=== PATIENT | female | born 1970 | race Caucasian/White ===

== ENCOUNTER 2016-08-02 13:15 | Inpatient (IN) | payer OTHER ==
[2016-08-02] MEDS ORDERED: NITROGLYCERIN OINT 1 INCH/GM PACKET TOPICAL STA (13:59)
[2016-08-02] MEDS ORDERED: ASPIRIN 81 MG CHEW PO STA (13:59)
--- NOTE | 2016-08-02 14:02 | ED ---
General Adult HPI - General Chief complaint: Chest Pain Stated complaint: Chest Pain Time Seen by Provider: 08/02/16 13:35 Source: patient, RN notes reviewed Mode of arrival: wheelchair Limitations: no limitations - History of Present Illness Initial comments: This is a 46-year-old female who presents emergency Department complaining of chest pain since Sunday. Patient states the pain radiates to her neck or back and her left arm. Patient states when she gets the chest pain she also was nauseous. Patient states she also short of breath. Patient states Sunday night the pain lasted all night long. Patient states she did vomit times one. Patient states since Sunday it is been intermittent ever since. Patient states currently she is chest pain-free and she is not short of breath. Patient denies any recent fever chills or cough per patient denies diabetes hypertension high cholesterol. Patient states she is a smoker. Patient denies any family history. Patient denies any lightheadedness dizziness or near syncopal episode. Patient denies headache patient denies numbness weakness. Patient denies any recent injury or trauma. Patient denies any abdominal pain. Patient states he does seem to come on after she eats but she has no abdominal tenderness - Related Data Home Medications Medication Instructions Recorded Confirmed Ibuprofen [Motrin] 200 mg PO ONCE PRN 08/02/16 08/02/16 Allergies Allergy/AdvReac Type Severity Reaction Status Date / Time No Known Allergies Allergy Verified 08/02/16 13:56 Review of Systems ROS Statement: Those systems with pertinent positive or pertinent negative responses have been documented in the HPI. ROS Other: All systems not noted in ROS Statement are negative. Past Medical History Past Medical History: No Reported History History of Any Multi-Drug Resistant Organisms: None Reported Past Surgical History: Section, Orthopedic Surgery Past Psychological History: No Psychological Hx Reported Smoking Status: Current every day smoker Past Alcohol Use History: Occasional Past Drug Use History: None Reported General Exam - General Exam Comments Initial Comments: GENERAL: Patient is well-developed and well-nourished. Patient is nontoxic and well- hydrated and is in no acute distress. ENT: Neck is soft and supple. No significant lymphadenopathy is noted. Oropharynx is clear. Moist mucous membranes. Neck has full range of motion without eliciting any pain. EYES: The sclera were anicteric and conjunctiva were pink and moist. Extraocular movements were intact and pupils were equal round and reactive to light. Eyelids were unremarkable. PULMONARY: Unlabored respirations. Good breath sounds bilaterally. No audible rales rhonchi or wheezing was noted. CARDIOVASCULAR: There is a regular rate and rhythm without any murmurs gallops or rubs. ABDOMEN: Soft and nontender with normal bowel sounds. No palpable organomegaly was noted. There is no palpable pulsatile mass. SKIN: Skin is clear with no lesions or rashes and otherwise unremarkable. NEUROLOGIC: Patient is alert and oriented x3. Cranial nerves II through XII are grossly intact. Motor and sensory are also intact. Normal speech, volume and content. Symmetrical smile. MUSCULOSKELETAL: Normal extremities with adequate strength and full range of motion. No lower extremity swelling or edema. No calf tenderness. LYMPHATICS: No significant lymphadenopathy is noted PSYCHIATRIC: Normal psychiatric evaluation. Limitations: no limitations Course Vital Signs 08/02/16 08/02/16 13:17 15:11 Temperature 98.7 F Pulse Rate 110 H 84 Respiratory 18 18 Rate Blood Pressure 138/90 118/79 O2 Sat by Pulse 96 98 Oximetry Medical Decision Making - Medical Decision Making EKG shows normal sinus rhythm at 97 bpm PA interval is 206 QRS is 98 QT interval 358 QTC is 454 per patient's EKG shows no ST segment elevation or depression. No T-wave abnormalities are noted. Patient started on heparin when I found that the troponin was elevated. I Dr. Sue he was in agreement with this. Patient's sugar was elevated I started the patient on an insulin drip acetone did come back negative however. I spoke with Dr. Daljit Sparrow he agreed to admit the patient admitted the patient consult cardiology. - Lab Data Result diagrams: 08/02/16 14:23 08/02/16 14:23 Lab Results 08/02/16 08/02/16 08/02/16 Range/Units 14:23 14:23 14:23 WBC 10.3 (3.8-10.6) k/uL RBC 4.32 (3.80-5.40) m/uL Hgb 14.6 (11.4-16.0) gm/dL Hct 45.0 (34.0-46.0) % MCV 104.1 H (80.0-100.0) fL MCH 33.9 (25.0-35.0) pg MCHC 32.5 (31.0-37.0) g/dL RDW 12.7 (11.5-15.5) % Plt Count 268 (150-450) k/uL Neutrophils % 76 % Lymphocytes % 17 % Monocytes % 4 % Eosinophils % 1 % Basophils % 0 % Neutrophils # 7.8 H (1.3-7.7) k/uL Lymphocytes # 1.8 (1.0-4.8) k/uL Monocytes # 0.5 (0-1.0) k/uL Eosinophils # 0.1 (0-0.7) k/uL Basophils # 0.0 (0-0.2) k/uL Macrocytosis Slight PT (9.0-12.0) sec INR (<1.1) APTT (22.0-30.0) sec Sodium 130 L (137-145) mmol/L Potassium 4.2 (3.5-5.1) mmol/L Chloride 96 L (98-107) mmol/L Carbon Dioxide 20 L (22-30) mmol/L Anion Gap 14 mmol/L BUN 12 (7-17) mg/dL Creatinine 0.47 L (0.52-1.04) mg/dL Est GFR (MDRD) Af Amer >60 (>60 ml/min/1.73 sqM) Est GFR (MDRD) Non-Af >60 (>60 ml/min/1.73 sqM) Glucose 519 H* (74-99) mg/dL POC Glucose (mg/dL) (75-99) mg/dL POC Glu Consumer Experience Consultant ID Calcium 9.5 (8.4-10.2) mg/dL Magnesium 1.6 (1.6-2.3) mg/dL Total Bilirubin 0.8 (0.2-1.3) mg/dL AST 25 (14-36) U/L ALT 26 (9-52) U/L Alkaline Phosphatase 111 (38-126) U/L Total Creatine Kinase 101 (30-135) U/L CK-MB (CK-2) 2.9 H* (0.0-2.4) ng/mL CK-MB (CK-2) Rel Index 2.9 Troponin I 0.460 H* (0.000-0.034) ng/mL Total Protein 7.0 (6.3-8.2) g/dL Albumin 4.1 (3.5-5.0) g/dL Acetone, Qual (Negative) 08/02/16 08/02/16 08/02/16 Range/Units 14:23 14:23 16:02 WBC (3.8-10.6) k/uL RBC (3.80-5.40) m/uL Hgb (11.4-16.0) gm/dL Hct (34.0-46.0) % MCV (80.0-100.0) fL MCH (25.0-35.0) pg MCHC (31.0-37.0) g/dL RDW (11.5-15.5) % Plt Count (150-450) k/uL Neutrophils % % Lymphocytes % % Monocytes % % Eosinophils % % Basophils % % Neutrophils # (1.3-7.7) k/uL Lymphocytes # (1.0-4.8) k/uL Monocytes # (0-1.0) k/uL Eosinophils # (0-0.7) k/uL Basophils # (0-0.2) k/uL Macrocytosis PT 10.2 (9.0-12.0) sec INR 1.0 (<1.1) APTT 24.3 (22.0-30.0) sec Sodium (137-145) mmol/L Potassium (3.5-5.1) mmol/L Chloride (98-107) mmol/L Carbon Dioxide (22-30) mmol/L Anion Gap mmol/L BUN (7-17) mg/dL Creatinine (0.52-1.04) mg/dL Est GFR (MDRD) Af Amer (>60 ml/min/1.73 sqM) Est GFR (MDRD) Non-Af (>60 ml/min/1.73 sqM) Glucose (74-99) mg/dL POC Glucose (mg/dL) 365 H (75-99) mg/dL POC Glu Consumer Experience Consultant ID Dunsmore, Dennise Calcium (8.4-10.2) mg/dL Magnesium (1.6-2.3) mg/dL Total Bilirubin (0.2-1.3) mg/dL AST (14-36) U/L ALT (9-52) U/L Alkaline Phosphatase (38-126) U/L Total Creatine Kinase (30-135) U/L CK-MB (CK-2) (0.0-2.4) ng/mL CK-MB (CK-2) Rel Index Troponin I (0.000-0.034) ng/mL Total Protein (6.3-8.2) g/dL Albumin (3.5-5.0) g/dL Acetone, Qual Negative (Negative) Disposition Clinical Impression: Hyperglycemia, Non-STEMI (non-ST elevated myocardial infarction) Disposition: ADMITTED IP TO THIS HOSP Referrals: None,Stated [Primary Care Provider] - 1-2 days Time of Disposition: 16:09
[2016-08-02 14:37] LABS: Basophils % (A) 0 %; CH 34.7; CHCM 33.5; Eosinophils # (A) 0.1 k/uL (0-0.7); Eosinophils % (A) 1 %; HDW 2.33; HGB 14.6 gm/dL (11.4-16.0); Luc # (Auto) 0.14; Luc % (Auto) 1; Lymphocytes # (A) 1.8 k/uL (1.0-4.8); Lymphocytes % (A) 17 %; MCH 33.9 pg (25.0-35.0); MCHC 32.5 g/dL (31.0-37.0); MCV 104.1 fL (80.0-100.0); Macrocytosis Slight; Mean Platelet Volume 7.3; Monocytes # (A) 0.5 k/uL (0-1.0); Monocytes % (A) 4 %; Neutrophils # (A) 7.8 k/uL (1.3-7.7); Neutrophils % (A) 76 %; RBC 4.32 m/uL (3.80-5.40); RDW 12.7 % (11.5-15.5); WBC 10.3 k/uL (3.8-10.6); WBC (Perox) 9.73
[2016-08-02 14:46] LABS: Partial Thromboplastin Time 24.3 sec (22.0-30.0); Prothrombin Time 10.2 sec (9.0-12.0)
--- NOTE | 2016-08-02 15:04 | XR ---
EXAMINATION TYPE: XR chest 2V DATE OF EXAM: 08/02/2016 COMPARISON: NONE INDICATION: Chest pain TECHNIQUE: Frontal and lateral views of the chest are obtained. FINDINGS: The heart size is normal. The pulmonary vasculature is normal. The lungs are clear. IMPRESSION: 1. No acute pulmonary process.
[2016-08-02 15:19] LABS: Creatine Kinase MB 2.9 ng/mL (0.0-2.4); Troponin I 0.46 ng/mL (0.000-0.034)
[2016-08-02] MEDS ORDERED: HEPARIN SODIUM,PORCINE 5,000 UNIT/ML 1 ML VIAL IV ONE (15:22)
[2016-08-02] MEDS ORDERED: HEPARIN SODIUM,PORCINE/D5W PMX 25,000 UNIT in DEXTROSE/WATER 1 500ML.BAG IV SCH (15:30)
[2016-08-02 15:35] LABS: ALT 26 U/L (9-52); AST 25 U/L (14-36); Alkaline Phosphatase 111 U/L (38-126); Anion Gap 14 mmol/L; Blood Urea Nitrogen 12 mg/dL (7-17); Calcium 9.5 mg/dL (8.4-10.2); Carbon Dioxide 20 mmol/L (22-30); Chloride 96 mmol/L (98-107); Magnesium 1.6 mg/dL (1.6-2.3); Non-African American GFR(MDRD) >60 (>60 ml/min/1.73 sqM); Potassium 4.2 mmol/L (3.5-5.1); Sodium 130 mmol/L (137-145); Total Bilirubin 0.8 mg/dL (0.2-1.3)
[2016-08-02 15:39] LABS: Glucose 519 mg/dL (74-99)
[2016-08-02] MEDS ORDERED: INSULIN REGULAR 100 UNIT in SODIUM CHLORIDE 0.9% 100 ML IV ONE (15:47)
[2016-08-02] MEDS ORDERED: INSULIN REGULAR 100 UNIT/ML VIAL IV ONE (15:47)
[2016-08-02 16:04] LABS: Glucose,Whole Blood 365 mg/dL (75-99)
[2016-08-02] MEDS ORDERED: NITROGLYCERIN SL TABS 0.4 MG TAB SUBLINGUAL PRN (16:09)
[2016-08-02 16:25] LABS: Amorphous Sediment,Urine Rare /hpf; Appearance,Urine Clear (Clear); Bilirubin,Urine Negative (Negative); Glucose,Urine (UA) 4+ (Negative); Ketones,Urine Negative (Negative); Leukocyte Esterase,Urine Moderate (Negative); Nitrite,Urine Negative (Negative); PH, Urine 5.5 (5.0-8.0); Particle Count 3586; Protein,Urine Negative (Negative); RBC,Urine 5 /hpf (0-5); Specific Gravity,Urine 1.032 (1.001-1.035); Squamous Epithelial Cell,Urine 4 /hpf (0-4); UA Billing (MACRO vs. MICRO) MICRO; Urobilinogen,Urine <2.0 mg/dL (<2.0); WBC,Urine 29 /hpf (0-5)
[2016-08-02] MEDS ORDERED: INSULIN REGULAR 100 UNIT/ML VIAL SQ ONE (16:35)
[2016-08-02 17:41] LABS: Glucose,Whole Blood 334 mg/dL (75-99)
[2016-08-02 19:02] LABS: Hemoglobin A1C 13.3 % (4.2-6.1)
[2016-08-02 20:19] LABS: Glucose,Whole Blood 356 mg/dL (75-99)
[2016-08-02] MEDS: INSULIN LISPRO (humaLOG) 300 UNIT/3 ML VIAL SQ SCH ×2 (20:20→20:21)
[2016-08-02] MEDS: NICOTINE 14MG/24HR PATCH TRANSDERM SCH (21:18)
[2016-08-02 22:26] LABS: Creatine Kinase MB 10.2 ng/mL (0.0-2.4); Troponin I 3.46 ng/mL (0.000-0.034)
[2016-08-02] MEDS: NITROGLYCERIN OINT 1 INCH/GM PACKET TOPICAL SCH (22:49)
[2016-08-02] MEDS ORDERED: HEPARIN SODIUM,PORCINE 5,000 UNIT/ML 1 ML VIAL IV STA (22:57)
[2016-08-03 03:39] LABS: Creatine Kinase MB 7.4 ng/mL (0.0-2.4); Troponin I 4.26 ng/mL (0.000-0.034)
[2016-08-03 06:04] LABS: Glucose,Whole Blood 323 mg/dL (75-99)
[2016-08-03] MEDS ORDERED: ACETAMINOPHEN TAB 500 MG TAB PO STA (06:08)
[2016-08-03 06:17] LABS: Cholesterol 196 mg/dL (<200); HDL Cholesterol 42 mg/dL (40-60); Triglycerides 206 mg/dL (<150)
[2016-08-03] MEDS: NITROGLYCERIN OINT 1 INCH/GM PACKET TOPICAL SCH (06:23)
[2016-08-03] MEDS: INSULIN LISPRO (humaLOG) 300 UNIT/3 ML VIAL SQ SCH ×5 (06:27→21:58)
[2016-08-03] MEDS ORDERED: ATORVASTATIN 80 MG TAB PO STA (07:13)
[2016-08-03] MEDS ORDERED: SODIUM CHLORIDE 0.9% 1,000 ML in EMPTY BAG 1 BAG IV ONE (07:13)
[2016-08-03] MEDS ORDERED: ALPRAZolam 0.25 MG TAB PO PRN (07:13)
[2016-08-03] MEDS ORDERED: NITROGLYCERIN SL TABS 0.4 MG TAB SUBLINGUAL PRN ×2 (07:13→12:28)
[2016-08-03] MEDS ORDERED: ASPIRIN 325 MG TAB PO STA (07:13)
[2016-08-03] MEDS ORDERED: ALPRAZolam 0.5 MG TAB PO PRN (07:13)
[2016-08-03] MEDS: METOPROLOL TARTRATE 25 MG TAB PO SCH ×2 (08:01→21:57)
[2016-08-03] MEDS ORDERED: ASPIRIN 325 MG TAB PO SCH (09:00)
--- NOTE | 2016-08-03 09:34 | ECHOF ---
Referral Reason:cad MEASUREMENTS -------- HEIGHT: 165.1 cm WEIGHT: 77.1 kg BP: 111/59 RVIDd: 2.5 cm (< 3.3) IVSd: 1.2 cm (0.6 - 1.1) LVIDd: 3.9 cm (3.9 - 5.3) LVPWd: 1.1 cm (0.6 - 1.1) IVSs: 1.6 cm LVIDs: 2.6 cm LVPWs: 1.6 cm LA Diam: 3.6 cm (2.7 - 3.8) LAESV Index (A-L): 13.94 ml/m Ao Diam: 3.0 cm (2.0 - 3.7) AV Cusp: 2.1 cm (1.5 - 2.6) MV EXCURSION: 17.484 mm (> 18.000) MV EF SLOPE: 150 mm/s (70 - 150) EPSS: 0.6 cm MV E Wayne: 0.51 m/s MV DecT: 203 ms MV A Wayne: 0.69 m/s MV E/A Ratio: 0.74 FINDINGS -------- Resting tachycardia (HR>100bpm). This was a technically good study. The left ventricular size is normal. There is borderline concentric left ventricular hypertrophy. Overall left ventricular systolic function is normal with, an EF between 55 - 60 %. The right ventricle is normal in size. Normal LA size by volume 22+/-6 ml/m2. The right atrium is normal in size. The aortic valve is trileaflet and appears structurally normal. The mitral valve is normal. The tricuspid valve appears structurally normal. Trace/mild (physiologic) pulmonic regurgitation. The aortic root size is normal. Normal inferior vena cava with normal inspiratory collapse consistent with estimated right atrial pressure of 5 mmHg. There is no pericardial effusion. CONCLUSIONS -------- 1. Resting tachycardia (HR>100bpm). 2. The tricuspid valve appears structurally normal. 3. Trace/mild (physiologic) pulmonic regurgitation. 4. The aortic root size is normal. 5. Normal inferior vena cava with normal inspiratory collapse consistent with estimated right atrial pressure of 5 mmHg. 6. There is no pericardial effusion. 7. This was a technically good study. 8. The left ventricular size is normal. 9. There is borderline concentric left ventricular hypertrophy. 10. Overall left ventricular systolic function is normal with, an EF between 55 - 60 %. 11. The right ventricle is normal in size. 12. Normal LA size by volume 22+/-6 ml/m2. 13. The aortic valve is trileaflet and appears structurally normal. 14. The mitral valve is normal. ADAPTED PHYSICAL EDUCATION AIDE: Soniya Santos RDCS
[2016-08-03] MEDS ORDERED: LIDOCAINE 2% INJ 20 MG/ML (20 ML MDV) ONE (10:20)
[2016-08-03] MEDS ORDERED: fentaNYL (PF) 50 MCG/ML 2 ML AMP ONE (10:21)
[2016-08-03] MEDS ORDERED: VERAPAMIL 2.5 MG/ML 2 ML AMP ONE (10:21)
[2016-08-03] MEDS ORDERED: HEPARIN SODIUM 1,000 UNIT/ML VIAL ONE (10:31)
[2016-08-03] MEDS ORDERED: fentaNYL (PF) 50 MCG/ML 2 ML AMP IV ONE (10:57)
[2016-08-03] MEDS ORDERED: SODIUM CHLORIDE 0.9% 1,000 ML IV ONE (10:57)
[2016-08-03] MEDS ORDERED: LIDOCAINE 2% INJ 20 MG/ML SQ ONE (11:02)
[2016-08-03] MEDS ORDERED: VERAPAMIL SYRINGE (5 MG/10 ML) INTRAARTER ONE (11:08)
--- NOTE | 2016-08-03 11:08 | CONS ---
DATE OF CONSULTATION: Mrs. Garcia is a 46-year-old female who has not seen a physician in many years, who presented to the emergency room with symptoms of chest discomfort. Her discomfort started on Sunday with an episode of discomfort across the chest radiating to the left forearm and up to the neck. She felt it was related to her gallbladder, took some carbonated beverages with resolution of her symptoms. She has return of these symptoms again on Sunday and yesterday and because of that she came into the emergency room. Her symptoms were not clearly exertional in pattern. She is reasonably active physically, has no exertional chest pain. Her breathing is stable on a regular basis. She has no dizziness, palpitation or syncope. In the emergency room, she was noted to have significantly elevated blood sugar. Patient has no knowledge of a history of diabetes and she has not had any cardiac workup evaluation in the recent past. Her coronary risk factors are remarkable for smoking. Her medications at home none. REVIEW OF SYSTEMS: RESPIRATORY SYSTEM: No recent wheezing. No cough. No history of documented obstructive lung disease. GI SYSTEM: No recent GI bleeding. No peptic ulcer disease. SYSTEM: No dysuria or hematuria. NERVOUS SYSTEM: No stroke or seizure. PHYSICAL EXAMINATION: A 46-year-old female, alert, oriented, in no apparent distress. Blood pressure 111/59 with the heart rate in the 90s. HEAD: Normocephalic. EYES: Sclerae anicteric. NECK: Good upstroke. No bruit. No jugular venous distention. LUNGS: Clear to auscultation. HEART: Regular rate and rhythm. S1, S2, no S3 plus S4, no rub. ABDOMEN: Soft, nontender, positive bowel sounds. No organomegaly. EXTREMITIES: No edema. Intact distal pulses. Lab data revealed a BUN and creatinine of 12 and 0.47. Potassium 4.2. Her blood sugar on admission 519. Hemoglobin A1c 13.3. Troponin, of 0.460, 3.4 and 4.2. Her hemoglobin is 14.6. Her chest x-ray shows no acute infiltrate. Her EKG revealed a sinus mechanism with a borderline left axis deviation and no acute ST segment changes. IMPRESSION: 1. Chest discomfort consistent with non-ST elevation myocardial infarction. 2. Diabetes mellitus undiagnosed in the past. 3. Chronic tobacco use. RECOMMENDATIONS: I will add to her regimen an JASBIR inhibitor and a statin. I would obtain an echocardiogram with Doppler. I have recommended proceeding with coronary angiography to assess her status and guide her treatment. The rationale behind the procedure as well as risks and complications were discussed with the patient, who is in full understanding and agreement. Depending on the result of testing, further recommendations will be made. Thank you for this consult. We will follow with you.
[2016-08-03] MEDS ORDERED: BIVALIRUDIN BOLUS 250 MG/50 ML IV ONE (11:19)
[2016-08-03] MEDS ORDERED: BIVALIRUDIN 250 MG in SODIUM CHLORIDE 0.9% 50 ML IV ONE (11:19)
[2016-08-03] MEDS ORDERED: CLOPIDOGREL 75 MG TAB PO ONE (11:20)
[2016-08-03] MEDS ORDERED: CLOPIDOGREL 75 MG TAB ONE (11:21)
[2016-08-03] MEDS ORDERED: ONDANSETRON 4 MG/2 ML VIAL ONE (11:34)
[2016-08-03] MEDS ORDERED: ONDANSETRON 4 MG/2 ML VIAL IVP ONE (11:36)
[2016-08-03] MEDS ORDERED: ADENOSINE 90 MG in SODIUM CHLORIDE 0.9% 60 ML IVP ONE (12:04)
[2016-08-03] MEDS ORDERED: NITROGLYCERIN 1000MCG/10ML SYRINGE INTRAARTER ONE (12:04)
[2016-08-03] MEDS ORDERED: IOHEXOL 350 MG/ML 125ML BOTTLE INTRATHECA ONE (12:13)
--- NOTE | 2016-08-03 12:26 | HP ---
DATE OF ADMISSION: DATE OF SERVICE: 08/02/2016 CHIEF COMPLAINT: A 46-year-old white female examined on 08/02/2016, did H&P, having chest pain since Sunday radiating to her neck or back to left arm. She was ( ), nausea. She was short of breath. She has had this pain for 15 years. It has been worsening over the past 5 to 6 days at which time she came to the hospital, vague pain due to the shoulders, neck, back and jaw. No lightheadedness or dizziness or near syncope. No recent trauma. Home medications of Motrin. ALLERGIES: No known drug allergies. Fourteen-point review of system is negative except for neurology. She has chronic tingling in her upper and lower extremities. PAST MEDICAL HISTORY: Negative. SURGERY: section, orthopedic surgery. Current every day smoker. Denies alcohol or drugs. PHYSICAL EXAM: She is a well-developed, well-nourished, in no acute distress, sitting in bed, answering questions appropriately. CARDIOVASCULAR: Regular rate and rhythm. LUNGS: Clear. GI: Soft. ENT: Negative. CARDIOVASCULAR: S1, S2. ABDOMEN: Soft. SKIN: Warm and dry. NEUROLOGIC: Alert and oriented x3. PSYCH: Fair mood and affect. MUSCULOSKELETAL: Full range of motion. Pulse is 84 to 110. Blood pressure 118 to 138 over 79 to 90, O2 96% to 8%, temp 98.7. EKG shows sinus rhythm. No ST-T changes. Troponin was elevated. Cardiology has been consulted. Her sugar was 519 when she came, now it is running in the mid 300s. She is on Accu-Cheks protocol. Will put her on diabetic medications and this is insulin Accu-Chek protocol. Neuropathy will be dealt with later. Nicotine patch will be given. Probably heart catheterization will be done. She is a positive non-STEMI, uncontrolled diabetes mellitus, diabetic neuropathy suspected, nicotine addiction. Please see further orders in the chart.
[2016-08-03] MEDS ORDERED: ATROPINE SULFATE 0.1 MG/ML 10ML SYRINGE IV PRN (12:28)
[2016-08-03] MEDS ORDERED: ZOLPIDEM 5 MG TAB PO PRN (12:28)
[2016-08-03] MEDS ORDERED: MAG HYDROX/AL HYDROX/SIMETH 30 ML CUP PO PRN (12:28)
[2016-08-03] MEDS ORDERED: RX INFO: IV CONTRAST WAS GIVEN 1 EACH MISC MISCELLANE PRN (12:28)
[2016-08-03] MEDS ORDERED: SODIUM CHLORIDE 0.9% 1,000 ML IV SCH (12:30)
[2016-08-03 12:35] LABS: Glucose,Whole Blood 260 mg/dL (75-99)
[2016-08-03] MEDS: NICOTINE 14MG/24HR PATCH TRANSDERM SCH (12:35)
[2016-08-03 15:19] VITALS: BMI 27.1
--- NOTE | 2016-08-03 15:55 | P.PN ---
Subjective 46-year-old female seen and evaluated this morning. Is scheduled today by cardiology service for left heart catheterization as part of the workup in a patient who did present to the emergency room with a chief complaint of developing chest pain. Patient stated that the chest discomfort initially started on Sunday described as a chest pressure radiated across the chest down the left arm up the neck. Patient stated that she did try to drink carbonated beverage it seemed to help the symptoms. Patient states she thought was her gallbladder. Patient stated the symptoms occurred again on Sunday as an Sunday prompting the patient to come into the emergency room on August 02. In the emergency room the patient was noted to have significantly elevated blood sugar. Patient gives no history of being a diabetic. Patient also reports no prior cardiac workup. Patient is a current every day smoker of cigarettes. Hemoglobin A1c on admission was 13.3 Echocardiogram shows left ventricular systolic function normal with an EF between 55 and 60%. Objective - Vital Signs Vital signs: Vital Signs Temp 96.2 F L 08/03/16 15:13 Pulse 88 08/03/16 15:13 Resp 18 08/03/16 15:13 BP 103/71 08/03/16 15:13 Pulse Ox 96 08/03/16 15:13 Intake & Output 08/02/16 08/03/16 08/03/16 18:59 06:59 18:59 Intake Total 785.759 9555.6 Balance 870.840 2662.6 Weight 77.111 kg 69.6 kg 69.6 kg Intake: IV 942.6 Nacl 0.9% 800 Intake, IV Titration 306.291 Amount Heparin Sodium,Porcine/ 306.291 D5w Pmx 25,000 unit In Dextrose/Water 1 500ml. bag @ 12 UNITS/KG/HR 18.5 mls/hr IV .Q24H BECCA Rx#: [id number] Oral 237 Other: Voiding Method Toilet # Voids 2 - Exam Physical exam 46-year-old female alert oriented 3 Lungs essentially clear adequate air movement Heart S1-S2 audible and regular Abdomen soft nontender no palpable organomegaly Extremities no edema noted - Labs CBC & Chem 7: 08/02/16 14:23 08/02/16 14:23 Labs: Abnormal Lab Results - Last 24 Hours (Table) 08/02/16 08/02/16 08/02/16 Range/Units 14:23 16:00 16:02 APTT (22.0-30.0) sec POC Glucose (mg/dL) 365 H (75-99) mg/dL Hemoglobin A1c 13.3 H (4.2-6.1) % Total Creatine Kinase (30-135) U/L CK-MB (CK-2) (0.0-2.4) ng/mL Troponin I (0.000-0.034) ng/mL Triglycerides (<150) mg/dL LDL Cholesterol, Calc (0-99) mg/dL TSH (0.465-4.680) mIU/L Urine Glucose (UA) 4+ H (Negative) Ur Leukocyte Esterase Moderate H (Negative) Urine WBC 29 H (0-5) /hpf Amorphous Sediment Rare H (None) /hpf 08/02/16 08/02/16 08/02/16 Range/Units 17:39 20:17 21:25 APTT (22.0-30.0) sec POC Glucose (mg/dL) 334 H 356 H (75-99) mg/dL Hemoglobin A1c (4.2-6.1) % Total Creatine Kinase 250 H (30-135) U/L CK-MB (CK-2) 10.2 H* (0.0-2.4) ng/mL Troponin I 3.460 H* (0.000-0.034) ng/mL Triglycerides (<150) mg/dL LDL Cholesterol, Calc (0-99) mg/dL TSH (0.465-4.680) mIU/L Urine Glucose (UA) (Negative) Ur Leukocyte Esterase (Negative) Urine WBC (0-5) /hpf Amorphous Sediment (None) /hpf 08/03/16 08/03/16 08/03/16 Range/Units 02:32 05:42 05:42 APTT 34.1 H (22.0-30.0) sec POC Glucose (mg/dL) (75-99) mg/dL Hemoglobin A1c (4.2-6.1) % Total Creatine Kinase 249 H (30-135) U/L CK-MB (CK-2) 7.4 H* (0.0-2.4) ng/mL Troponin I 4.260 H* (0.000-0.034) ng/mL Triglycerides 206 H (<150) mg/dL LDL Cholesterol, Calc 113 H (0-99) mg/dL TSH (0.465-4.680) mIU/L Urine Glucose (UA) (Negative) Ur Leukocyte Esterase (Negative) Urine WBC (0-5) /hpf Amorphous Sediment (None) /hpf 08/03/16 08/03/16 08/03/16 Range/Units 05:42 06:03 12:33 APTT (22.0-30.0) sec POC Glucose (mg/dL) 323 H 260 H (75-99) mg/dL Hemoglobin A1c (4.2-6.1) % Total Creatine Kinase (30-135) U/L CK-MB (CK-2) (0.0-2.4) ng/mL Troponin I (0.000-0.034) ng/mL Triglycerides (<150) mg/dL LDL Cholesterol, Calc (0-99) mg/dL TSH 6.020 H (0.465-4.680) mIU/L Urine Glucose (UA) (Negative) Ur Leukocyte Esterase (Negative) Urine WBC (0-5) /hpf Amorphous Sediment (None) /hpf Assessment and Plan Plan: Impression Present on admission chest pain suspect due to a non-ST elevated myocardial infarction Present on admission hyperglycemia with an elevated hemoglobin A1c of 13.5 suspect new undiagnosis diabetes Current every day smoker Left ventricular systolic function normal with an EF between 55 and 60% per echocardiogram done on August 02 Plan Await the findings from the left heart catheterization scheduled today Diabetic education to be initiated Monitor blood sugars address as indicated Start Lantus and monitor the response DVT and GI prophylaxis continue recommendations by cardiology service The above dictated assessment and findings were discussed with dr eric Tierney and the plan of care have been dictated as directed. Azul Ann nurse practitioner acting as a scribe for dr reyes .
[2016-08-03 18:11] LABS: Glucose,Whole Blood 275 mg/dL (75-99)
[2016-08-03] MEDS ORDERED: INSULIN GLARGINE 100 UNIT/ML 10 ML VIAL SQ SCH (21:00)
[2016-08-03 21:20] LABS: Glucose,Whole Blood 242 mg/dL (75-99)
[2016-08-04 06:29] LABS: Anion Gap 9 mmol/L; Blood Urea Nitrogen 12 mg/dL (7-17); Calcium 9.1 mg/dL (8.4-10.2); Carbon Dioxide 24 mmol/L (22-30); Chloride 104 mmol/L (98-107); Glucose 216 mg/dL (74-99); Non-African American GFR(MDRD) >60 (>60 ml/min/1.73 sqM); Potassium 3.9 mmol/L (3.5-5.1); Sodium 137 mmol/L (137-145)
[2016-08-04 06:37] LABS: Glucose,Whole Blood 231 mg/dL (75-99)
[2016-08-04] MEDS: INSULIN LISPRO (humaLOG) 300 UNIT/3 ML VIAL SQ SCH ×4 (07:02→12:33)
[2016-08-04] MEDS ORDERED: LISINOPRIL 2.5 MG TAB PO SCH (09:00)
[2016-08-04] MEDS ORDERED: ATORVASTATIN 40 MG TAB PO SCH (09:00)
[2016-08-04] MEDS ORDERED: CLOPIDOGREL 75 MG TAB PO SCH (09:00)
[2016-08-04] MEDS ORDERED: ASPIRIN 81 MG CHEW PO SCH (09:00)
--- NOTE | 2016-08-04 09:00 | PTCA ---
DATE OF SERVICE: Ms. Garcia is a 46-year-old female who has not seen a physician in many years presented with evidence of non- ST segment elevation myocardial infarction, underwent cardiac catheterization, was found to have critical stenosis involving the first obtuse marginal branch as well as moderate disease in the proximal left anterior descending. Recommendations were made regarding angioplasty and stenting. The procedure as well as risks and complications were discussed with the patient who is in full understanding and agreement. PROCEDURE: A 6 Romansh 3 and a half Bend left Carlos catheter was introduced into the system. After cannulating the left main, attempt to advance a wire into the left circumflex were unsuccessful. Because of the acute takeoff and the angulation of the left circumflex the takeoff at that time, a super crossed 90 degree catheter was introduced and with the help of the catheter, the balance medium weight J-wire was advanced into the first obtuse marginal branch. Attempt to advance a 2.25 x 8 mm Xience Alpine stent were unsuccessful. That stent was removed and a 2.5 x 12 mm Trek balloon was advanced and two inflations were done at maximum of 8 atmospheres. Following that, the balloon was removed and a 2.5 x 12 mm Xience Alpine stent was deployed, it was dilated at 12 atmospheres. After the last inflation, after appropriate wait the balloon and the guidewire were withdrawn back into the guiding catheter. Images were obtained repeated. Those images revealed stable successful stenting. At that point, the guiding catheter, the balloon and the guidewire were removed and Doppler flow wire was introduced into the LAD and fractional flow reserve was measured after infusion of adenosine intravenously per protocol. The fractional flow reserve was 86%. At that point the guiding catheter, the balloon and the guidewire were removed. The sheath was removed. Hemostasis was obtained with deployment of a TR band. There were no immediate complications. Patient is returned to her room in stable condition. Of note, the patient received Angiomax per protocol as well as oral loading dose of Clopidogrel. She has no chest discomfort with inflation with mild EKG changes that resolved. RESULTS: 1. Successful stenting of the first obtuse marginal branch with reduction in stenosis from 99% to 0%. 2. Non-hemodynamically significant lesion in the left anterior descending artery. RECOMMENDATIONS: Patient will be continued on aspirin, Plavix, beta betito, jocelyn inhibitor, statin. The importance of smoking cessation was discussed with the patient and her family and she is in full understanding and agreement. Duration of the procedure is 72 minutes.
--- NOTE | 2016-08-04 09:02 | CC ---
DATE OF SERVICE: Mrs. Garcia is a 46-year-old female with history of chronic tobacco use, who has not seen a physician in many years, who presented with symptoms of chest discomfort and had evidence of non- ST elevation myocardial infarction. Because of that, recommendation was made regarding cardiac catheterization. The procedure as well as risk and complications were discussed with the patient who is in full understanding and agreement. PROCEDURE: Patient was brought to the clinical laboratory manager in a fasting, semi-sedated. After receiving fentanyl and Benadryl and after obtaining moderate conscious sedated state, using Xylocaine anesthesia and Seldinger technique, a 6 Martiniquais sheath was introduced in the right radial artery. Selective right and left coronary angiography performed using 5 Martiniquais 3-1/2 Bend right and left Carlos catheters. Multiple views of the coronary arteries including hemiaxial views were obtained. Following that, a 5 Martiniquais tight pigtail catheter was introduced in the left ventricle, and a 30-degree INGRAM view of the left ventricle was obtained. Following that, catheter was removed. Images were reviewed. Of note, the patient received intra-arterial verapamil. FINDINGS: LEFT MAIN: This is a large-size vessel bifurcating into left circumflex artery and left anterior descending artery. Left main coronary artery is without any significant obstructive disease. LEFT ANTERIOR DESCENDING ARTERY: This is a large-size vessel reaching toward apex with a wrap around apex segment, giving rise to a moderately sized diagonal branch. The left anterior descending artery proximally has a 50% plaque. The rest of the vessel has no high-grade stenosis. LEFT CIRCUMFLEX: This is a nondominant vessel, giving rise to 3 obtuse marginal branches. The first one is the largest caliber. The first obtuse marginal branch has a 99% stenosis at the take off. The rest of the vessel has no high-grade stenosis. RIGHT CORONARY ARTERY: This is a dominant vessel, large in caliber, bifurcating distally into PDA and posterolateral segment and branches. The right coronary artery as well as its branches have no evidence of obstructive coronary artery disease. LEFT VENTRICULOGRAM: Left ventriculogram was performed in 30-degree INGRAM view and revealed mid anterolateral wall hypokinesis. Ejection fraction is 50%. There was no significant mitral regurgitation. HEMODYNAMICS: There was no gradient across the aortic valve. The left ventricular end-diastolic pressure was 15 mmHg. CONCLUSION: 1. Critical stenosis involving the first obtuse marginal branch. 2. Moderate disease in the proximal left anterior descending artery. 3. Minimally impaired left ventricular systolic function. RECOMMENDATIONS: In view of the findings and the anatomy, I have recommended proceeding with angioplasty and stenting of the left circumflex. The procedure as well as risks and complications were discussed with the patient who is in full understanding and agreement.
[2016-08-04] MEDS ORDERED: LEVOTHYROXINE 50 MCG TAB PO SCH (09:15)
[2016-08-04 09:17] VITALS: RESP 16
[2016-08-04] MEDS: METOPROLOL TARTRATE 25 MG TAB PO SCH (09:18)
[2016-08-04] MEDS: NICOTINE 14MG/24HR PATCH TRANSDERM SCH (09:19)
[2016-08-04 11:40] LABS: Glucose,Whole Blood 184 mg/dL (75-99)
[2016-08-04 11:43] VITALS: BP 101/62; PULSE 67; TEMP 97.1
--- NOTE | 2016-08-04 12:55 | PN ---
Mrs. Garcia is a 46-year-old female who presented with non-ST segment elevation myocardial infarction. She has not seen a physician. She was noted to have evidence of diabetes mellitus. She is doing well this morning. She is denying any chest pain. She underwent cardiac catheterization yesterday and stenting of her obtuse marginal branch as well as fraction flow reserve measurement of her LAD that was non hemodynamically significant. She is doing well this morning. She is denying any chest pain. Her breathing has been stable. She denies any palpitation. She denies any nausea. She continued to be on aspirin once a day, Plavix 75 mg daily, Lipitor 40 mg daily, insulin, lisinopril 2.5 mg daily, metoprolol tartrate 25 mg twice a day. PHYSICAL EXAMINATION: Blood pressure 99/60 with the heart rate in the 70s. LUNGS: Clear. HEART: Regular rate and rhythm. S1 and S2, no S3, no rub. ABDOMEN: Soft, nontender. EXTREMITIES: No edema. Right radial pulse intact. EKG no acute changes. LAB DATA: BUN and creatinine 12 and 0.5. Potassium 3.9. IMPRESSION: 1. Non- ST segment elevation myocardial infarction, status post stenting of the obtuse marginal branch. 2. Diabetes, not diagnosed in the past. 3. Hyperlipidemia. RECOMMENDATION: Patient should be able to be discharged home today and followed as an outpatient. RUMA
--- NOTE | 2016-08-04 13:59 | P.DS ---
Providers Date of admission: 08/02/16 16:09 Expected date of discharge: 08/04/16 Attending physician: Daljit Sparrow Consults: 08/02/16 16:09 Consult Physician Urgent Consulting Provider: Alex Rosen Consult Reason/Comments: N STEMI Do you want consulting provider notified?: Yes 08/03/16 12:28 Consult Physician Routine Consulting Provider: Alex Rosen Consult Reason/Comments: Post Interventional patient Do you want consulting provider notified?: Already Contacted Primary care physician: Stated None Hospital Course: 46-year-old female who presented on the day of admission to the emergency room with a chief complaint of developing chest discomfort patient starts discomfort had started on a Sunday described as a pressure sensation radiated down the left arm up into the neck. Patient stated that she tried to drink carbonated beverage it seemed to help relieve chest discomfort. Patient stated at first she thought it was a gallbladder. Patient stated the symptoms continue to occur persist over the next several days prompting patient come to the emergency room on the to be evaluated for the above-mentioned symptoms. In the emergency room the patient's blood sugar was significantly elevated. Patient gives no history of being a diabetic. Patient's hemoglobin A1c on admission was 13.3. Patient was admitted to the services of the attending with a cardiology consultation requested. Patient gives no prior history of a cardiac workup. Troponins were elevated patient was treated for non-ST elevated myocardial infarction cardiology recommended the patient undergo a left heart catheterization to evaluate the coronary anatomy patient underwent a heart catheterization on the 03 of August did show moderate disease in the proximal LAD. A critical stenosis noted in the first obtuse branch. The patient did undergo an angioplasty stenting to the left circumflex per Dr. Sue Patient's blood sugars remained elevated patient was started on insulin. Additionally patient seen by the family life educator was set up for diabetic education classes. Additionally the case sealer did pursue setting the patient up with a glucose meter with supplies. From all consulting physicians patient was appropriate to be discharged home Impression Present on admission chest pain suspect due to a non-ST elevated myocardial infarction Present on admission hyperglycemia with an elevated hemoglobin A1c of 13.5 suspect new undiagnosis diabetes Current every day smoker Left ventricular systolic function normal with an EF between 55 and 60% per echocardiogram done on August 02 Status post left heart catheterization August 03 successful stenting of the first obtuse marginal branch drug-eluting stent placed Status post left heart catheterization non-hemodynamic significant lesion in the left anterior descending artery The above impression and plan of care have been discussed and directed by signing physician. Azul Ann nurse practitioner acting as scribe for signing physician. Plan - Discharge Summary New Discharge Prescriptions: New Levothyroxine Sodium [Synthroid] 50 mcg PO DAILY@0630 #30 tab Aspirin 81 mg PO DAILY #30 Atorvastatin [Lipitor] 40 mg PO DAILY #30 tab Clopidogrel [Plavix] 75 mg PO DAILY #30 tab Lisinopril [Zestril] 2.5 mg PO DAILY #30 tab Metoprolol Tartrate [Lopressor] 25 mg PO BID #603 tab Nicotine 14Mg/24Hr Patch [Habitrol] 1 patch TRANSDERM DAILY #30 patch Nitroglycerin Sl Tabs [Nitrostat] 0.4 mg SUBLINGUAL Q5M PRN #25 tab PRN Reason: Chest Pain metFORMIN HCL [Glucophage] 500 mg PO BID-W/MEALS #60 tab Discontinued Ibuprofen [Motrin] 200 mg PO ONCE PRN PRN Reason: Pain Discharge Medication List Aspirin 81 mg PO DAILY #30 08/04/16 [Rx] Atorvastatin [Lipitor] 40 mg PO DAILY #30 tab 08/04/16 [Rx] Clopidogrel [Plavix] 75 mg PO DAILY #30 tab 08/04/16 [Rx] Levothyroxine Sodium [Synthroid] 50 mcg PO DAILY@0630 #30 tab 08/04/16 [Rx] Lisinopril [Zestril] 2.5 mg PO DAILY #30 tab 08/04/16 [Rx] Metoprolol Tartrate [Lopressor] 25 mg PO BID #603 tab 08/04/16 [Rx] Nicotine 14Mg/24Hr Patch [Habitrol] 1 patch TRANSDERM DAILY #30 patch 08/04/16 [ Rx] Nitroglycerin Sl Tabs [Nitrostat] 0.4 mg SUBLINGUAL Q5M PRN #25 tab 08/04/16 [Rx ] metFORMIN HCL [Glucophage] 500 mg PO BID-W/MEALS #60 tab 08/04/16 [Rx] Follow up Appointment(s)/Referral(s): Mahamed Sue MD [STAFF PHYSICIAN] - 1 Week Daljit Sparrow MD [STAFF PHYSICIAN] - 08/07/16 None,Stated [Primary Care Provider] - 1-2 days Patient Instructions/Handouts: How to Stop Smoking (DC), After Radial Heart Catheterization (GEN) Discharge Disposition: HOME SELF-CARE
[2016-08-04] MEDS ORDERED: metFORMIN 500 MG TAB PO SCH (17:30)
[2016-08-04] MEDS ORDERED: metFORMIN 850 MG TAB PO SCH (17:30)
== END 2016-08-04 15:50 | disposition home or self-care (01) | DRG 247 ==
LOC: EC 13:15 → 6SEL 16:09
PROVIDERS: ADMIT Family Medicine; ATTEND Family Medicine
PROC: B2151ZZ Fluoroscopy of Left Heart using Low Osmolar Contrast (ICD-10-PCS; 2016-08-03)
PROC: 4A033BC Measurement of Arterial Pressure, Coronary, Percutaneous Approach (ICD-10-PCS; 2016-08-03)
PROC: 027034Z Dilation of Coronary Artery, One Artery with Drug-eluting Intraluminal Device, Percutaneous Approach (ICD-10-PCS; principal; 2016-08-03 10:25)
PROC: 4A023N7 Measurement of Cardiac Sampling and Pressure, Left Heart, Percutaneous Approach (ICD-10-PCS; 2016-08-03 10:25)
PROC: B2111ZZ Fluoroscopy of Multiple Coronary Arteries using Low Osmolar Contrast (ICD-10-PCS; 2016-08-03 10:25)
DX: I21.4 Non-ST elevation (NSTEMI) myocardial infarction (principal); E11.65 Type 2 diabetes mellitus with hyperglycemia; E78.5 Hyperlipidemia, unspecified; F17.210 Nicotine dependence, cigarettes, uncomplicated
CPT/HCPCS: 36415; 71020; 80048; 80053; 80061; 81001; 82009; 82550; 82553; 83036; 83735; 84439; 84443; 84484; 85025; 85347; 85610; 85730; 93005; 93306; 93458; 93571; 96365; 96366; 96376; 99285

== ENCOUNTER 2018-05-17 17:11 | Emergency (ER) | payer OTHER ==
[2018-05-17 17:16] VITALS: TEMP 98
--- NOTE | 2018-05-17 19:11 | CT ---
EXAMINATION: CT brain wo con DATE AND TIME: 05/17/2018 6:46 PM CLINICAL INDICATION: PHH; pain TECHNIQUE: Standard departmental protocol.; 1129.4 COMPARISON: None. FINDINGS: The calvarium is intact. There is no intracranial hemorrhage. There is no intracranial mass or mass effect. No definite new intra-axial or extra-axial attenuation defect. The paranasal sinuses, middle ear cavities, and mastoid sinus air cells are clear. The orbits are unremarkable. IMPRESSION: NO ACUTE PROCESS.
[2018-05-17 19:15] LABS: Basophils % (A) 0 %; Eosinophils # (A) 0.5 k/uL (0-0.7); Eosinophils % (A) 5 %; HCT 37.4 % (34.0-46.0); HGB 12.8 gm/dL (11.4-16.0); Lymphocytes # (A) 2.9 k/uL (1.0-4.8); Lymphocytes % (A) 30 %; MCH 33.7 pg (25.0-35.0); MCHC 34.3 g/dL (31.0-37.0); MCV 98.2 fL (80.0-100.0); Macrocytosis Slight; Mean Platelet Volume 8.7; Monocytes # (A) 0.5 k/uL (0-1.0); Monocytes % (A) 5 %; Neutrophils # (A) 5.6 k/uL (1.3-7.7); Neutrophils % (A) 58 %; Platelet Count 330 k/uL (150-450); RDW 14.7 % (11.5-15.5); WBC 9.6 k/uL (3.8-10.6)
[2018-05-17 19:19] LABS: ALT 36 U/L (9-52); AST 25 U/L (14-36); Albumin 4.7 g/dL (3.5-5.0); Alkaline Phosphatase 67 U/L (38-126); Anion Gap 8 mmol/L; Blood Urea Nitrogen 24 mg/dL (7-17); Calcium 10.6 mg/dL (8.4-10.2); Carbon Dioxide 26 mmol/L (22-30); Chloride 104 mmol/L (98-107); Glucose 88 mg/dL (74-99); Potassium 4.3 mmol/L (3.5-5.1); Sodium 138 mmol/L (137-145); Total Bilirubin 0.4 mg/dL (0.2-1.3); Total Protein 7.7 g/dL (6.3-8.2)
[2018-05-17] MEDS ORDERED: KETOROLAC 30 MG/ML 1 ML VIAL IVP STA (19:24)
--- NOTE | 2018-05-17 19:35 | ED ---
General Adult HPI - General Chief complaint: Headache Stated complaint: Headache, out of medication Time Seen by Provider: 05/17/18 17:56 Source: patient, RN notes reviewed Mode of arrival: ambulatory Limitations: no limitations - History of Present Illness Initial comments: 48-year-old female sent emergency Department with chief complaint of needing me dication refill and headache. Patient states that she has been out of her medications for 1 week and states that she is now developed intermittent headache, facial pain. She does known she does have dental infection. She denies any current antibiotics. Patient states that she has no chest pain or shortness of breath. Patient states the headache is wax and wane she has no focal weakness denies any nausea vomiting. Patient states that she has no paresthesias. Patient offers no complaints. Patient states that Motrin alleviates over symptoms. - Related Data Home Medications Medication Instructions Recorded Confirmed Ascorbic Acid [Vitamin C] 500 mg PO DAILY 05/17/18 05/17/18 Aspirin EC [Ecotrin Low Dose] 81 mg PO DAILY 05/17/18 05/17/18 Cholecalciferol [Vitamin D3] 1,000 unit PO DAILY 05/17/18 05/17/18 Cinnamon 1000mg 2,000 mg PO DAILY 05/17/18 05/17/18 Cyanocobalamin (Vitamin B-12) 2,500 mcg PO DAILY 05/17/18 05/17/18 [Vitamin B-12] Echinacea/Goldenseal Extract 900mg 2 tab PO DAILY 05/17/18 05/17/18 Ibuprofen [Motrin Ib] 400 mg PO Q6H PRN 05/17/18 05/17/18 Multivitamins, Thera [Multivitamin 1 tab PO DAILY 05/17/18 05/17/18 (formulary)] Vitamin E (Dl,Tocopheryl Acet) 400 unit PO DAILY 05/17/18 05/17/18 [Vitamin E] Previous Rx's Medication Instructions Recorded Metoprolol Tartrate [Lopressor] 25 mg PO BID #603 tab 08/04/16 Atorvastatin [Lipitor] 40 mg PO DAILY #30 tab 05/17/18 Clopidogrel [Plavix] 75 mg PO DAILY #30 tab 05/17/18 Levothyroxine Sodium [Synthroid] 50 mcg PO DAILY@0630 #30 tab 05/17/18 Lisinopril [Zestril] 10 mg PO DAILY #30 tab 05/17/18 Metoprolol Tartrate [Lopressor] 25 mg PO BID #60 tablet 05/17/18 Penicillin V Potassium [Pen Vee K] 500 mg PO QID #40 tablet 05/17/18 glipiZIDE [Glucotrol] 5 mg PO AC-BID #60 tab 05/17/18 metFORMIN HCL 1,000 mg PO BID #60 tablet 05/17/18 Allergies Allergy/AdvReac Type Severity Reaction Status Date / Time No Known Allergies Allergy Verified 05/17/18 18:22 Review of Systems ROS Statement: Those systems with pertinent positive or pertinent negative responses have been documented in the HPI. ROS Other: All systems not noted in ROS Statement are negative. Past Medical History Past Medical History: No Reported History, Diabetes Mellitus, Hyperlipidemia, Hy pertension, Myocardial Infarction ([place]) Additional Past Medical History / Comment(s): ARTHRITIS, SINUS PROBLEMS, UTI History of Any Multi-Drug Resistant Organisms: None Reported Past Surgical History: Section, Orthopedic Surgery Additional Past Surgical History / Comment(s): X2 C-SECTIONS, LT KNEE ARTHROSCOPY, Stent 2017 Past Anesthesia/Blood Transfusion Reactions: No Reported Reaction Past Psychological History: No Psychological Hx Reported Smoking Status: Current every day smoker Past Alcohol Use History: Occasional Past Drug Use History: None Reported - Past Family History Mother Additional Family Medical History / Comment(s): MON HAD 12 CHILDREN, WAS HEALTH-HAS SOME GALL BLADDER PROBLEMS. Father Family Medical History: Cancer Additional Family Medical History / Comment(s): LUNG CANER-NON SMOKER. WORKED FOR [employer]. General Exam Limitations: no limitations General appearance: alert, in no apparent distress Head exam: Present: atraumatic, normocephalic, normal inspection Eye exam: Present: normal appearance, PERRL, EOMI. Absent: scleral icterus, conjunctival injection, periorbital swelling ENT exam: Present: normal exam, normal oropharynx, mucous membranes moist, TM's normal bilaterally Neck exam: Present: normal inspection, full ROM. Absent: tenderness, men ingismus, lymphadenopathy Respiratory exam: Present: normal lung sounds bilaterally. Absent: respiratory distress, wheezes, rales, rhonchi, stridor Cardiovascular Exam: Present: regular rate, normal rhythm, normal heart sounds. Absent: systolic murmur, diastolic murmur, rubs, gallop, clicks Neurological exam: Present: alert, oriented X3, CN II-XII intact, reflexes normal, other (Finger to nose intact bilaterally without over shooting.). Absent: motor sensory deficit Skin exam: Present: warm, dry, intact, normal color. Absent: rash Course Vital Signs 05/17/18 17:13 Temperature 98 F Pulse Rate 89 Respiratory 20 Rate Blood Pressure 129/81 O2 Sat by Pulse 97 Oximetry Medical Decision Making - Medical Decision Making 48-year-old female present for headache. CT unremarkable. Patient is improved after Toradol. Patient's found to be intact. Patient's headache related to dental infection, medication that she ran out of. Patient be discharged with prescription refills and antibiotics. - Lab Data Result diagrams: 05/17/18 18:55 05/17/18 18:55 Lab Results 05/17/18 05/17/18 Range/Units 18:55 18:55 WBC 9.6 (3.8-10.6) k/uL RBC 3.80 (3.80-5.40) m/uL Hgb 12.8 (11.4-16.0) gm/dL Hct 37.4 (34.0-46.0) % MCV 98.2 (80.0-100.0) fL MCH 33.7 (25.0-35.0) pg MCHC 34.3 (31.0-37.0) g/dL RDW 14.7 (11.5-15.5) % Plt Count 330 (150-450) k/uL Neutrophils % 58 % Lymphocytes % 30 % Monocytes % 5 % Eosinophils % 5 % Basophils % 0 % Neutrophils # 5.6 (1.3-7.7) k/uL Lymphocytes # 2.9 (1.0-4.8) k/uL Monocytes # 0.5 (0-1.0) k/uL Eosinophils # 0.5 (0-0.7) k/uL Basophils # 0.0 (0-0.2) k/uL Macrocytosis Slight Sodium 138 (137-145) mmol/L Potassium 4.3 (3.5-5.1) mmol/L Chloride 104 (98-107) mmol/L Carbon Dioxide 26 (22-30) mmol/L Anion Gap 8 mmol/L BUN 24 H (7-17) mg/dL Creatinine 0.65 (0.52-1.04) mg/dL Est GFR (CKD-EPI)AfAm >90 (>60 ml/min/1.73 sqM) Est GFR (CKD-EPI)NonAf >90 (>60 ml/min/1.73 sqM) Glucose 88 (74-99) mg/dL Calcium 10.6 H (8.4-10.2) mg/dL Total Bilirubin 0.4 (0.2-1.3) mg/dL AST 25 (14-36) U/L ALT 36 (9-52) U/L Alkaline Phosphatase 67 (38-126) U/L Total Protein 7.7 (6.3-8.2) g/dL Albumin 4.7 (3.5-5.0) g/dL Disposition Clinical Impression: Medication refill, Dental infection, Headache Disposition: HOME SELF-CARE Condition: Stable Instructions (If sedation given, give patient instructions): Acute Headache (ED) Additional Instructions: Please return to the Emergency Department if symptoms worsen or any other concerns. Prescriptions: glipiZIDE [Glucotrol] 5 mg PO AC-BID #60 tab Atorvastatin [Lipitor] 40 mg PO DAILY #30 tab Metoprolol Tartrate [Lopressor] 25 mg PO BID #60 tablet metFORMIN HCL 1,000 mg PO BID #60 tablet Penicillin V Potassium [Pen Vee K] 500 mg PO QID #40 tablet Clopidogrel [Plavix] 75 mg PO DAILY #30 tab Levothyroxine Sodium [Synthroid] 50 mcg PO DAILY@0630 #30 tab Lisinopril [Zestril] 10 mg PO DAILY #30 tab Is patient prescribed a controlled substance at d/c from ED?: No Referrals: None,Stated [Primary Care Provider] - 1-2 days Time of Disposition: 19:34
[2018-05-17 19:53] VITALS: BP 137/79; PULSE 70; RESP 16
== END 2018-05-17 20:02 | disposition home or self-care (01) ==
LOC: EC 17:11
DX: K04.7 Periapical abscess without sinus (principal); Z76.0 Encounter for issue of repeat prescription; I25.2 Old myocardial infarction; M19.90 Unspecified osteoarthritis, unspecified site; F17.200 Nicotine dependence, unspecified, uncomplicated; Z79.82 Long term (current) use of aspirin; Z79.899 Other long term (current) drug therapy; Z95.5 Presence of coronary angioplasty implant and graft
CPT/HCPCS: 36415; 80053; 85025; 70450; 99284; 96374; J1885

== ENCOUNTER → 2020-01-23 | Outpatient (CLI) | payer OTHER ==
[2020-01-23 12:14] LABS: Basophils # (A) 0.1 k/uL (0-0.2); Basophils % (A) 1 %; Eosinophils # (A) 0.3 k/uL (0-0.7); Eosinophils % (A) 2 %; HCT 43.4 % (34.0-46.0); HGB 14.3 gm/dL (11.4-16.0); Lymphocytes # (A) 2.7 k/uL (1.0-4.8); Lymphocytes % (A) 21 %; MCH 34.1 pg (25.0-35.0); MCV 103.3 fL (80.0-100.0); Macrocytosis Slight; Mean Platelet Volume 7.1; Monocytes # (A) 0.6 k/uL (0-1.0); Monocytes % (A) 5 %; Neutrophils # (A) 9.1 k/uL (1.3-7.7); Neutrophils % (A) 70 %; Platelet Count 311 k/uL (150-450); RBC 4.21 m/uL (3.80-5.40); RDW 11.9 % (11.5-15.5); WBC 12.9 k/uL (3.8-10.6)
[2020-01-23 19:53] LABS: African American GFR (CKD) 98.9 (60.0-200.0); Albumin/Globulin Ratio 2.27 (1.60-3.17); Anion Gap 7.7 mmol/L (4.00-12.00); Calcium 10.7 mg/dL (8.7-10.3); Carbon Dioxide 28.3 mmol/L (21.6-31.8); Globulin 2.2 g/dL (1.6-3.3); Non-African American GFR(CKD) 85.4 (60.0-200.0); Potassium 5.1 mmol/L (3.5-5.5); Total Bilirubin 0.5 mg/dL (0.3-1.2); Total Protein 7.2 g/dL (6.2-8.2)
[2020-01-23 19:58] LABS: T4, Free (Free Thyroxine) 1.2 ng/dL (0.80-1.80)
[2020-01-23 20:29] LABS: Hemoglobin A1C 7.4 % (4.0-6.0)
== END | disposition home or self-care (01) ==
LOC: LABWHC1 10:28
PROVIDERS: ATTEND Family Medicine
DX: E03.9 Hypothyroidism, unspecified (principal); E11.9 Type 2 diabetes mellitus without complications
CPT/HCPCS: 36415; 80053; 83036; 84439; 84443; 84481; 85025

== ENCOUNTER → 2020-02-02 | Outpatient (CLI) | payer OTHER | END | disposition home or self-care (01) | LOC: LABWHC1 08:24 | PROVIDERS: ATTEND Family Medicine | DX: I10 Essential (primary) hypertension (principal); E03.9 Hypothyroidism, unspecified | CPT/HCPCS: 36415; 82310; 83970 ==